=== PATIENT | male | born 1980 | race Caucasian/White ===

== ENCOUNTER 2016-05-25 14:07 | Emergency (ER) | payer MEDICAID ==
[~2016-05-25] VITALS: Ht 175.3 cm; Wt 65.0 kg
[2016-05-25 14:09] VITALS: Ht 175.3 cm; Wt 65.0 kg
[2016-05-25] MEDS ORDERED: ONDANSETRON 4 MG INJ IV STA (14:10)
[2016-05-25] MEDS ORDERED: SOD CHLORIDE 0.9% 1,000 ML IV STA (14:10)
[2016-05-25 14:36] LABS: ADD SCAN DIFF NO
[2016-05-25 14:43] LABS: BASOPHILS % 0.3 % (0.0-2.0); EOSINOPHILS # 0.1 10^3/ul (0.0-0.5); EOSINOPHILS % 0.6 % (0.0-7.0); HEMATOCRIT 48.3 % (42.0-52.0); LYMPHOCYTES # 1.7 10^3/ul (0.8-2.9); LYMPHOCYTES % 18.2 % (15.0-51.0); MEAN CORPUSCULAR HEMOGLOBIN 27.6 pg (29.0-33.0); MEAN CORPUSCULAR HGB CONC 33.1 g/dl (32.0-37.0); MEAN CORPUSCULAR VOLUME 83.4 fl (82.0-101.0); MEAN PLATELET VOLUME 10.8 fl (7.4-10.4); MONOCYTE # 0.8 10^3/ul (0.3-0.9); MONOCYTES % 9.2 % (0.0-11.0); NEUTROPHIL # 6.5 10^3/ul (1.6-7.5); NEUTROPHILS % 71.4 % (39.0-77.0); PLATELET COUNT 247 10^3/UL (140-415); RED BLOOD COUNT 5.79 10^6/ul (4.70-6.10); RED CELL DISTRIBUTION WIDTH 12.8 % (11.5-14.5); WHITE BLOOD COUNT 9.1 10^3/ul (4.8-10.8)
[2016-05-25 14:48] LABS: CHLORIDE 101 mmol/L (97-110); POTASSIUM 3.2 mmol/L (3.5-5.1); SODIUM 140 mmol/L (135-144)
[2016-05-25 14:51] LABS: ANION GAP 18 (8-16); BLOOD UREA NITROGEN 17 mg/dl (7-20); CARBON DIOXIDE 24 mmol/L (21-31); CREATININE 0.79 mg/dl (0.61-1.24); GLUCOSE 110 mg/dl (70-220)
[2016-05-25 14:52] LABS: CALCIUM 9.1 mg/dl (8.4-10.2)
[2016-05-25] MEDS ORDERED: POTASSIUM CHLORIDE (SR) 20 MEQ TAB PO STA (15:03)
[2016-05-25 15:05] LABS: TROPONIN-I < 0.012 ng/ml (0.00-0.12)
[2016-05-25] MEDS ORDERED: ONDA4TAB14 PO (15:38)
[2016-05-25 16:20] VITALS: BP 121/76; PULSE 70; RESP 17; TEMP 98.5
--- NOTE | 2016-05-25 17:36 | ERD ---
ER Documentation Chief Complaint Date/Time DATE: 05/25/16 TIME: 17:35 Chief Complaint IN ED FOR EVAL OF NAUSEA AND DIARRHEA. HPI Is a 36-year-old male with no medical problems who presents with not feeling well. He said that he has 2 days where he was "not feeling well". The patient has had nausea and vomiting as well as diarrhea. He felt like he was sweating today. He never had that before. He has had no fevers. He has had no treatment as of yet. He does not currently have a primary doctor. ROS All systems reviewed and are negative except as per history of present illness. Medications Home Meds Active Scripts Ondansetron (Ondansetron Odt) 4 Mg Tab.rapdis, 4 MG PO Q6H Y for NAUSEA AND/OR VOMITING, #30 TAB Prov:LILA GARCIA MD 05/25/16 Allergies Allergies: Coded Allergies: No Known Allergy (Unverified , 05/25/16) PMhx/Soc Medical and Surgical Hx: pt denies Medical Hx, pt denies Surgical Hx Hx Alcohol Use: No Hx Substance Use: No Hx Tobacco Use: No Smoking Status: Never smoker FmHx Family History: diabetes Physical Exam Vitals Vital Signs Date Time Temp Pulse Resp B/P Pulse Ox O2 Delivery O2 Flow Rate FiO2 05/25/16 16:20 98.5 70 17 121/76 100 Room Air 05/25/16 14:09 97.8 99 18 143/88 99 Physical Exam Const: Mild distress secondary to nausea Head: Atraumatic Eyes: Normal Conjunctiva ENT: Normal External Ears, Nose and Mouth. Neck: Full range of motion..~ No meningismus. Resp: Clear to auscultation bilaterally Cardio: Regular rate and rhythm, no murmurs Abd: Soft, non tender, non distended. Normal bowel sounds Skin: Diaphoresis Back: No midline or flank tenderness Ext: No cyanosis, or edema Neur: Awake and alert Psych: Normal Mood and Affect Result Diagram: 05/25/16 1420 05/25/16 1420 Results 24 hrs Laboratory Tests Test 05/25/16 14:20 Anion Gap 18 Basophils # 0.010^3/ul Basophils % 0.3% Blood Urea Nitrogen 17mg/dl Calcium Level 9.1mg/dl Carbon Dioxide Level 24mmol/L Chloride Level 101mmol/L Creatinine 0.79mg/dl Eosinophils # 0.110^3/ul Eosinophils % 0.6% Glucose Level 110mg/dl Hematocrit 48.3% Hemoglobin 16.0g/dl Lymphocytes # 1.710^3/ul Lymphocytes % 18.2% Mean Corpuscular Hemoglobin 27.6pg Mean Corpuscular Hemoglobin Concent 33.1g/dl Mean Corpuscular Volume 83.4fl Mean Platelet Volume 10.8fl Monocytes # 0.810^3/ul Monocytes % 9.2% Neutrophils # 6.510^3/ul Neutrophils % 71.4% Nucleated Red Blood Cells # 0.010^3/ul Nucleated Red Blood Cells % 0.0/100WBC Platelet Count 84041^3/UL Potassium Level 3.2mmol/L Red Blood Count 5.7910^6/ul Red Cell Distribution Width 12.8% Sodium Level 140mmol/L Troponin I < 0.012ng/ml White Blood Count 9.110^3/ul Current Medications Medications (Trade) Dose Ordered Sig/Pam Route PRN Reason Start Time Stop Time Status Last Admin Dose Admin Sodium Chloride (NS) 1,000 ml @ 1,000 mls/hr Q1H STAT IV 05/25/16 14:10 05/25/16 15:09 DC 05/25/16 14:28 Ondansetron HCl (Zofran Inj) 4 mg ONCE STAT IV 05/25/16 14:10 05/25/16 14:13 DC 05/25/16 14:32 Potassium Chloride (Klor-Con 20) 40 meq ONCE STAT PO 05/25/16 15:03 05/25/16 15:04 DC 05/25/16 15:21 Procedures/MDM EKG read by me: Rate/Rhythm: Regular rate and rhythm at a normal rate Intervals: Normal Impression: No evidence of ischemia or arrhythmia Smoking Cessation Therapy: Pt. was lectured for greater than 3 minutes on the health risks of continued smoking and the benefits of cessation. Patient is a 36-year-old male with no medical problems who presents with nausea , vomiting, and diarrhea. He had near syncope but did not pass out. He had a workup including EKG and laboratory studies. EKG was normal. Laboratory studies show mild hypokalemia and he was given potassium by mouth. The patient was given 1 L of normal saline for fluid resuscitation and feels much better. He was given Zofran and is no longer nauseous. The patient be discharged home with a prescription for Zofran. At this point I believe outpatient management is appropriate. I doubt appendicitis, cholecystitis, pancreatitis, or bowel obstruction. The patient can return for any worsening symptoms. He will need to follow-up with a local clinics as he does not currently have a primary doctor. Departure Diagnosis: Primary Impression: Near syncope Additional Impression: Vomiting and diarrhea Condition: Fair Patient Instructions: Self-Care for Vomiting and Diarrhea Referrals: [facility] YOU HAVE RECEIVED A MEDICAL SCREENING EXAM AND THE RESULTS INDICATE THAT YOU DO NOT HAVE A CONDITION THAT REQUIRES URGENT TREATMENT IN THE EMERGENCY DEPARTMENT. FURTHER EVALUATION AND TREATMENT OF YOUR CONDITION CAN WAIT UNTIL YOU ARE SEEN IN YOUR DOCTORS OFFICE WITHIN THE NEXT 1-2 DAYS. IT IS YOUR RESPONSIBILITY TO MAKE AN APPOINTMENT FOR FOLOW-UP CARE. IF YOU HAVE A PRIMARY DOCTOR --you should call your primary doctor and schedule an appointment IF YOU DO NOT HAVE A PRIMARY DOCTOR YOU CAN CALL OUR PHYSICIAN REFERRAL HOTLINE AT IF YOU CAN NOT AFFORD TO SEE A PHYSICIAN YOU CAN CHOSE FROM THE FOLLOWING [facility] CLINICS [facility] [address]. [facility] [address] [facility] [facility] [address] [facility] [facility] [address] [facility] [facility] [address] [facility]. [facility]. [address] Additional Instructions: Call your primary care doctor TOMORROW for an appointment during the next 1-2 days.See the doctor sooner or return here if your condition worsens before your appointment time. LILA GARCIA MD May 25, 2016 17:36
== END 2016-05-25 16:23 | disposition home or self-care (01) ==
LOC: E/R 14:07
DX: R55 Syncope and collapse (principal); R11.10 Vomiting, unspecified; R19.7 Diarrhea, unspecified
CPT/HCPCS: 36415; 80048; 84484; 85025; 96361; 96374; J2405; J7030; Z7502; Z7610

== ENCOUNTER 2017-05-24 13:22 | Day surgery (SDC) | END 2017-05-24 18:45 | disposition home or self-care (01) ==